=== PATIENT | female | born 1995 | race Caucasian/White ===

== ENCOUNTER 2016-07-16 00:44 | Emergency (ER) | payer OTHER ==
[2016-07-16] MEDS ORDERED: ONDANSETRON 4 MG ODT TAB ONE (01:57)
[2016-07-16] MEDS ORDERED: SODIUM CHLORIDE 0.9% 1,000 ML ONE (02:55)
[2016-07-16] MEDS ORDERED: METOCLOPRAMIDE HCL 5 MG/ML 2ML VIAL ONE (02:55)
== END 2016-07-16 04:41 | disposition home or self-care (01) ==
LOC: ED 00:44
DX: R11.2 Nausea with vomiting, unspecified (principal)
CPT/HCPCS: 84703; 99283 ×2; 96374; 96361 ×2; J2765; J7030; A9270

== ENCOUNTER 2016-07-18 20:45 | Emergency (ER) | payer OTHER ==
[2016-07-18] MEDS ORDERED: IOPAMIDOL 300 (61%) 100 ML VIAL IV ONE (20:46)
[2016-07-18] MEDS ORDERED: ONDANSETRON 4 MG ODT TAB ONE (22:37)
[2016-07-18 23:01] LABS: SPECIFIC GRAVITY 1.025 (1.001-1.030); URINE BILIRUBIN NEGATIVE (NEGATIVE); URINE BLOOD NEGATIVE (NEGATIVE); URINE GLUCOSE (UA) NEGATIVE (NEGATIVE); URINE LEUKOCYTE ESTERASE NEGATIVE (NEGATIVE); URINE NITRITE NEGATIVE (NEGATIVE); URINE PROTEIN NEGATIVE (NEGATIVE); URINE UROBILINOGEN NORMAL (0-1 mg/dl)
[2016-07-18 23:07] LABS: URINE APPEARANCE CLEAR; URINE COLOR DARK YELLOW
[2016-07-18] MEDS ORDERED: ONDANSETRON 4 MG/2ML 2 ML VIAL ONE (23:28)
[2016-07-18] MEDS ORDERED: SODIUM CHLORIDE 0.9% 1,000 ML ONE (23:28)
[2016-07-18 23:33] LABS: HCG,QUALITATIVE URINE NEGATIVE
[2016-07-18 23:36] LABS: ABSOLUTE NEUTROPHIL COUNT 4.6 K/mm3 (1.8-7.7); BASO % 0.5 % (0.2-1.0); EOS # 0.1 (0.0-0.5); EOS % 0.8 % (0.9-2.9); HEMATOCRIT 42.3 % (37.0-47.0); HEMOGLOBIN 14.6 gm/l (12.0-16.0); IMM NEUT% 0.4 % (0-1); LYMPH # 3.3 (1.0-4.8); MEAN CELL VOLUME 87.9 fl (81.0-99.0); MEAN CORPUSCULAR HEMOGLOBIN 30.4 pg (27.0-31.0); MEAN CORPUSCULAR HGB CONC 34.5 g/dl (33.0-37.0); MEAN PLATELET VOLUME 9.6 fl (7.4-10.4); MONO # 0.5 (0.0-0.8); MONO % 6.2 % (4-12); NEUT % 54.1 % (43-75); PLATELET COUNT 254 K/mm3 (130-400); RED CELL DISTRIBUTION WIDTH 11.5 % (11.5-14.5)
[2016-07-18 23:52] LABS: ALBUMIN 4.7 gm/dL (3.5-5.7); CALCIUM 9.3 mg/dL (8.6-10.3)
[2016-07-19] MEDS ORDERED: ONDANSETRON 4 MG/2ML 2 ML VIAL ONE (00:36)
[2016-07-19] MEDS ORDERED: METOCLOPRAMIDE HCL 5 MG/ML 2ML VIAL ONE (00:36)
--- NOTE | 2016-07-19 07:37 | RAD ---
Exam: Acute abdominal series with PA chest COMPARISON: Chest radiograph 02/02/2015 INDICATION: Vomiting for 6 days. FINDINGS: Supine and upright views of the abdomen and a PA view of the chest were obtained. There is a normal bowel gas pattern without evidence of obstruction. No obvious organomegaly or mass effect. No abnormal abdominal calcifications are seen. There is no free air under the diaphragm. Cardiac silhouette is within normal limits and lungs are clear. Mild dextroconvex curvature of the thoracic spine is again appreciated. Bones otherwise unremarkable. IMPRESSION: No evidence of bowel obstruction or perforation. No acute pulmonary process.
--- NOTE | 2016-07-19 07:42 | CT ---
Exam: CT abdomen and pelvis with contrast COMPARISON: Abdominal radiograph same day INDICATION: Vomiting for 6 days. TECHNIQUE: CT examination of the abdomen and pelvis was obtained following the administration of 100 mL Isovue-300 intravenous contrast. FINDINGS: The bowel, including the appendix, is unremarkable and there is no bowel obstruction, free air or significant free intraperitoneal fluid. Uterus and ovaries are unremarkable. Nuvaring Is appreciated. There is a 10 mm hypodense lesion within the right lobe of the liver on axial image 11 which is indeterminate but statistically likely to be benign. The spleen, pancreas, kidneys, adrenal glands and gallbladder are unremarkable. Tiny fat-containing periumbilical hernia is appreciated. There are 3 pulmonary nodules within the left lower lobe measuring up to 4 mm which are of doubtful clinical significance in this patient. Lung bases otherwise clear. Bones unremarkable. IMPRESSION: No acute findings identified to explain patient's symptoms. There is no acute inflammatory changes or evidence of bowel obstruction. A few incidental findings as above. Preliminary report transmitted to the emergency department from [email or web address] at 0153 hours 07/19/2016.
== END 2016-07-19 03:21 | disposition home or self-care (01) ==
LOC: ED 20:45
DX: K52.1 Toxic gastroenteritis and colitis (principal); R11.2 Nausea with vomiting, unspecified; T38.5X5A Adverse effect of other estrogens and progestogens, initial encounter; Y92.9 Unspecified place or not applicable